=== PATIENT | female | born 1990 | race Caucasian/White ===

== ENCOUNTER 2018-07-22 06:06 | Emergency (ER) | payer OTHER ==
[~2018-07-22] VITALS: Ht 160 cm; Wt 86.2 kg
[2018-07-22] MEDS ORDERED: PROVENTIL HFA6.7 GM INH (06:15)
[2018-07-23] MEDS ORDERED: PREDNISONE10 M1 PO (02:30)
== END 2018-07-22 07:03 | disposition home or self-care (01) ==
LOC: ED 06:06
DX: O99.511 Diseases of the respiratory system complicating pregnancy, first trimester (principal); J45.901 Unspecified asthma with (acute) exacerbation; Z3A.01 Less than 8 weeks gestation of pregnancy

== ENCOUNTER 2018-07-23 00:53 | Emergency (ER) | payer OTHER ==
[~2018-07-23] VITALS: Ht 160 cm; Wt 86.2 kg
[~2018-07-23 00:53] MED LIST: PROVENTIL HFA6.7 GM INH
[2018-07-23] MEDS ORDERED: PREDNISONE10 M1 PO (02:30)
== END 2018-07-23 02:40 | disposition home or self-care (01) ==
LOC: ED 00:53
DX: O99.511 Diseases of the respiratory system complicating pregnancy, first trimester (principal); J45.901 Unspecified asthma with (acute) exacerbation; Z3A.08 8 weeks gestation of pregnancy